=== PATIENT | male | born 1955 | race Caucasian/White ===

== ENCOUNTER 2022-11-05 09:00 | Outpatient (CLI) | payer MEDICARE, BC ==
[2022-11-05 12:02] LABS: #Basophils 0.1 10x3/uL (0.0-0.2); #Eosinphils 0.2 10x3/uL (0.0-0.5); #Monocytes 0.8 10x3/uL (0.0-1.1); #Neutrophils 4.1 10x3/uL (1.5-8.4); %Basophils 0.8 % (0.0-2.0); %Eosinophils 3.1 % (0.0-6.0); %Lymphocytes 32.5 % (18.0-47.0); %Monocytes 9.9 % (0.0-10.0); %Neutrophils 53.6 % (40.0-75.0); Hemoglobin 15.4 g/dL (13.5-17.5); Mean Corpuscular HGB CONC 34.2 g/dL (32.0-36.0); Mean Corpuscular Hemoglobin 31.2 pg (27.0-33.0); Mean Corpuscular Volume 91.1 fl (81.2-95.1); Mean Platelet Volume 11.1 fl (7.4-10.4); Platelet Count 251 10x3/uL (150-450); RBC Distribution Width 13.1 % (11.5-14.5); Red Blood Cell (RBC) Count 4.94 10x6/uL (4.32-5.72); White Blood Cell (WBC) Count 7.7 10x3/uL (3.5-10.5)
[2022-11-05 12:19] LABS: Anion Gap 16 mmol/L (10-20); BUN (Urea Nitrogen) 16 mg/dL (8.4-25.7); Calc. Creatinine Clearance 0 mL/min (70-130); Calcium 9.3 mg/dL (7.8-10.44); Carbon Dioxide 21 mmol/L (23-31); Chloride 107 mmol/L (98-107); Estimated GFR 68; Glucose 117 mg/dL (80-115); Potassium 4.5 mmol/L (3.5-5.1); Sodium 139 mmol/L (136-145)
== END 2022-11-05 09:01 | disposition home or self-care (01) ==
LOC: LABBT 09:00
PROVIDERS: ATTEND Orthopaedic Surgery
DX: Z01.818 Encounter for other preprocedural examination (principal)
CPT/HCPCS: 71046; 80048; 85025; 93005; 93010

== ENCOUNTER 2022-11-07 07:24 | Day surgery (SDC) | payer MEDICARE, BC ==
[2022-11-05 11:57] VITALS: BMI 37.3
[2022-11-07] MEDS ORDERED: Sodium Chloride 0.9% 100 ML ONE (10:00)
[2022-11-07] MEDS ORDERED: CEFAZOLIN 2 GM VIAL ONE (10:00)
[2022-11-07] MEDS ORDERED: fentaNYL PF 100 MCG/2 ML SYRINGE ONE (10:01)
[2022-11-07] MEDS ORDERED: PROPOFOL 200 MG/20 ML VIAL ONE (10:11)
[2022-11-07] MEDS ORDERED: Rocuronium Bromide 10 MG/ML (10ML VIAL) ONE (10:11)
[2022-11-07] MEDS ORDERED: PHENYLEPHRINE-NS 100 MCG/ML 10 ML SYRINGE ONE (10:11)
[2022-11-07] MEDS ORDERED: Lidocaine 1% PF 5 ML VIAL ONE (10:11)
[2022-11-07] MEDS ORDERED: Glycopyrrolate 0.2 MG/ML 5 ML SYRINGE ONE (10:11)
[2022-11-07] MEDS ORDERED: ePHEDrine 50 MG/ML VIAL ONE (10:11)
[2022-11-07] MEDS ORDERED: NEOSTIGMINE 3 MG/3 ML SYR 3 MG/3 ML SYRINGE ONE (10:11)
[2022-11-07] MEDS ORDERED: Ondansetron PF 4 MG/2 ML Vial ONE (10:11)
[2022-11-07] MEDS ORDERED: Dexamethasone 20 MG/5 ML VIAL ONE (10:11)
[2022-11-07] MEDS ORDERED: Vancomycin 1 GM VIAL ONE (10:19)
[2022-11-07] MEDS ORDERED: Bupivacaine PF 0.5% 30 ML VIAL ONE (10:52)
== END 2022-11-07 13:15 | disposition home or self-care (01) ==
LOC: SDC 07:24
PROVIDERS: ATTEND Orthopaedic Surgery
PROC: 0MT40ZZ Resection of Left Elbow Bursa and Ligament, Open Approach (ICD-10-PCS; principal; 2022-11-07)
DX: M71.122 Other infective bursitis, left elbow (principal); G43.909 Migraine, unspecified, not intractable, without status migrainosus; E66.9 Obesity, unspecified; Z68.37 Body mass index [BMI] 37.0-37.9, adult; Z86.16 Personal history of COVID-19; Z79.2 Long term (current) use of antibiotics; Z79.82 Long term (current) use of aspirin; Z79.899 Other long term (current) drug therapy
CPT/HCPCS: 87070; 87205; J1100; J2405; J2704; J3370; J3490; S0020